=== PATIENT | female | born 1990 ===

== ENCOUNTER → 2023-09-01 15:09 | Outpatient (CLI) | payer OTHER, SELFPAY ==
--- NOTE | ~2023-09-01 | US_ITS ---
EXAMINATION: US pelvic complete DATE: 09/01/2023 15:41 INDICATION: missing iud strings TECHNIQUE: Multiple transabdominal sonographic images of the pelvis were obtained. COMPARISON: None. FINDINGS: Uterus: 7.5 x 3.1 x 4.3 cm. Anteverted. IUD, within the uterine body. Endometrial complex measures 6 mm. Right Ovary: 1.8 x 2.1 x 2.3 cm. Vascular flow is present. No adnexal mass. Left Ovary: 2.3 x 2.2 x 2.7 cm. Vascular flow is present. No adnexal mass. There is no free fluid in the pelvis. IMPRESSION: IUD, in good position. Otherwise normal transabdominal pelvic sonogram findings. Reviewed, dictated and finalized at location [facility]
== END ==
PROVIDERS: PCP Advanced Practice Midwife; Visit Provider Advanced Practice Midwife
DX: T83.32XA Displacement of intrauterine contraceptive device, initial encounter (principal)
CPT/HCPCS: 76856